=== PATIENT | male | born 1995 | race Caucasian/White ===

== ENCOUNTER → 2016-09-22 | Outpatient (CLI) | payer BC ==
[2016-09-22 13:17] LABS: BASOPHILS % 0.5 % (0.0-2.0); EOSINOPHILS # 0.1 10^3/ul (0.0-0.5); HEMATOCRIT 47.3 % (42.0-52.0); HEMOGLOBIN 16.1 g/dl (14.0-18.0); LYMPHOCYTES # 1.8 10^3/ul (0.8-2.9); LYMPHOCYTES % 26.1 % (15.0-51.0); MEAN CORPUSCULAR HEMOGLOBIN 28.5 pg (29.0-33.0); MEAN CORPUSCULAR VOLUME 83.8 fl (82.0-101.0); MONOCYTE # 0.5 10^3/ul (0.3-0.9); MONOCYTES % 6.8 % (0.0-11.0); NEUTROPHIL # 4.5 10^3/ul (1.6-7.5); NEUTROPHILS % 65.6 % (39.0-77.0); PLATELET COUNT 235 10^3/UL (140-440); RED BLOOD COUNT 5.65 10^6/ul (4.70-6.10); RED CELL DISTRIBUTION WIDTH 14.4 % (11.5-14.5); UNCORRECTED WBC 6.9 10^3/ul (4.8-10.8); WHITE BLOOD COUNT 6.9 10^3/ul (4.8-10.8)
[2016-09-22 13:29] LABS: ALBUMIN 5.1 g/dl (3.3-4.9)
[2016-09-22 13:30] LABS: POTASSIUM 4.1 mmol/L (3.5-5.1)
[2016-09-22 13:32] LABS: ALBUMIN/GLOBULIN RATIO 1.41; BILIRUBIN,INDIRECT 0.4 mg/dl (0-1.1); BILIRUBIN,TOTAL 0.4 mg/dl (0.2-1.3); CREATININE 0.82 mg/dl (0.61-1.24); TOTAL PROTEIN 8.7 g/dl (6.1-8.1)
[2016-09-22 13:33] LABS: CALCIUM 10.3 mg/dl (8.4-10.2); CHOL/HDL RATIO 3.9 RATIO
[2016-09-22 13:36] LABS: CONDITION 1
[2016-09-22 14:07] LABS: THYROID STIMULATING HORMONE 1.26 MIU/L (0.465-4.680)
== END | disposition home or self-care (01) ==
LOC: LAB 12:51
PROVIDERS: ATTEND Internal Medicine
DX: E03.9 Hypothyroidism, unspecified (principal); D64.9 Anemia, unspecified; E55.9 Vitamin D deficiency, unspecified
CPT/HCPCS: 80053; 80061; 82306; 84436; 84443; 85025

== ENCOUNTER → 2017-07-16 | Outpatient (CLI) | payer BC | END | disposition home or self-care (01) | LOC: LAB 13:01 | PROVIDERS: ATTEND Internal Medicine | DX: E03.9 Hypothyroidism, unspecified (principal); E78.5 Hyperlipidemia, unspecified | CPT/HCPCS: 80053; 80061; 84403; 84443; 84479; 85025 ==

== ENCOUNTER → 2017-07-24 | Outpatient (CLI) | payer BC ==
--- NOTE | 2017-07-24 17:32 | RADRPT ---
PROCEDURE: XR Right hip and pelvis. CLINICAL INDICATION: Myofascial strain. Right hip pain and pelvic pain. TECHNIQUE: Two views. Frontal pelvis and lateral right hip. COMPARISON: No prior studies are available for comparison. FINDINGS: There is no fracture or dislocation. The soft tissues are normal. The right hip is normal. The left hip is grossly normal. There is no lytic or blastic lesion. The upper pelvis is not completely included on the image. IMPRESSION: 1. Normal right hip. 2. Grossly normal appearance of the left hip and pelvis. RPTAT: QQ .Zachery Scott MD, MD Date Time Electronically viewed and signed by .Zachery Scott MD, MD on 07/24/2017 17:32 .R/
--- NOTE | 2017-07-24 17:34 | RADRPT ---
PROCEDURE: XR Right hip and pelvis. CLINICAL INDICATION: Myofascial strain. Right hip pain and pelvic pain. TECHNIQUE: 3 views. Frontal pelvis and frontal and lateral right hip. COMPARISON: No prior studies are available for comparison. FINDINGS: There is no fracture or dislocation. The soft tissues are normal. The right hip is normal. The left hip is grossly normal. There is no lytic or blastic lesion. The pelvis is fully visualized and appears normal. IMPRESSION: 1. Normal right hip. 2. Normal frontal pelvis and frontal left hip. RPTAT: QQ .Zachery Scott MD, Date Time Electronically viewed and signed by .Zachery Scott MD, on 07/24/2017 17:34 .R/
== END | disposition home or self-care (01) ==
LOC: RAD 12:44
PROVIDERS: ATTEND Internal Medicine
DX: S76.011D Strain of muscle, fascia and tendon of right hip, subsequent encounter (principal); X58.XXXD Exposure to other specified factors, subsequent encounter
CPT/HCPCS: 72170; 73510